=== PATIENT | male | born 1990 | race Caucasian/White ===

== ENCOUNTER 2022-03-17 22:01 | Emergency (ER) | payer OTHER, BC ==
[2022-03-17] MEDS ORDERED: Ondansetron PF 4 MG/2 ML Vial ONE (22:16)
[2022-03-17] MEDS ORDERED: Morphine 4 MG/ML VIAL ONE (22:16)
[2022-03-17] MEDS ORDERED: Sodium Chloride 0.9% 100 ML ONE (22:20)
[2022-03-17] MEDS ORDERED: HYDROmorphone 0.5 MG/0.5 ML SYRINGE ONE (22:20)
[2022-03-17] MEDS ORDERED: CEFAZOLIN 1 GM VIAL ONE (22:20)
[2022-03-17] MEDS ORDERED: Boostrix 0.5 ML (Tdap) VIAL (>/=7 yrs of age) ONE (22:22)
[2022-03-17 22:39] LABS: #Basophils 0.1 thou/uL (0.0-0.2); #Eosinphils 0.1 thou/uL (0.0-0.7); #Lymphocytes 1.8 thou/uL (1.20-3.40); #Monocytes 0.4 thou/uL (0.11-0.59); #Neutrophils 8.3 thou/uL (1.40-6.50); %Basophils 0.7 % (0.0-1.0); %Eosinophils 0.6 % (0.0-10.0); %Lymphocytes 16.9 % (21.0-51.0); %Monocytes 3.9 % (0.0-10.0); %Neutrophils 77.9 % (42.0-75.0); Hemoglobin 16.5 g/dL (14.0-18.0); Mean Corpuscular HGB CONC 33.8 g/dL (32.0-36.0); Mean Corpuscular Hemoglobin 30.5 pg (27.0-31.0); Mean Corpuscular Volume 90.3 fl (78.0-98.0); Mean Platelet Volume 9.7 fL (7.4-10.4); Platelet Count 183 10x3/uL (130-400); RBC Distribution Width 11.6 % (11.5-14.5); White Blood Cell (WBC) Count 10.6 10x3/uL (4.8-10.8)
[2022-03-17 22:54] LABS: ALT (SGPT) 77 U/L (8-55); AST (SGOT) 47 U/L (5-34); Albumin 4.5 g/dL (3.5-5.0); Alkaline Phosphatase 88 U/L (40-110); Anion Gap 15 mmol/L (10-20); BUN (Urea Nitrogen) 14 mg/dL (8.9-20.6); Bilirubin, Total 0.4 mg/dL (0.2-1.2); Calc. Creatinine Clearance 0 mL/min (70-130); Calcium 9.4 mg/dL (7.8-10.44); Carbon Dioxide 26 mmol/L (22-29); Chloride 105 mmol/L (98-107); Estimated GFR 66; Globulin 3.6 g/dL (2.4-3.5); Glucose 127 mg/dL (70-105); Protein, Total 8.1 g/dL (6.0-8.3); Sodium 142 mmol/L (136-145)
[2022-03-17] MEDS ORDERED: Ketorolac Tromethamine 30 MG/ML VIAL ONE (23:20)
== END 2022-03-17 23:50 | disposition home or self-care (01) ==
LOC: MADERS 22:01
DX: S52.321A Displaced transverse fracture of shaft of right radius, initial encounter for closed fracture (principal); S52.221A Displaced transverse fracture of shaft of right ulna, initial encounter for closed fracture; K58.9 Irritable bowel syndrome, unspecified; W01.198A Fall on same level from slipping, tripping and stumbling with subsequent striking against other object, initial encounter; Y93.I9 Activity, other involving external motion; Z23 Encounter for immunization; Z79.899 Other long term (current) drug therapy
CPT/HCPCS: 29105; 80053; 85025; 90471; 90715; 96365; 96375; J0690; J1170; J1885; J2270; J2405; J3490